=== PATIENT | female | born 1945 | race Caucasian/White ===

== ENCOUNTER 2017-03-02 13:26 | Observation (INO) | payer MEDICARE, OTHER ==
[~2017-03-02] VITALS: Ht 167.6 cm; Wt 79.4 kg
[2017-03-02 14:42] LABS: HEMOGLOBIN 13.1 gm/dl (12.3-15.3); RED BLOOD COUNT 4.45 M/UL (4.00-5.10); WHITE BLOOD COUNT 6.8 K/UL (4.5-11.0)
[2017-03-02 14:59] LABS: BUN/CREATININE RATIO 23 (0-10)
[2017-03-03 04:05] LABS: HEMOGLOBIN 12.1 gm/dl (12.3-15.3); RED BLOOD COUNT 4.12 M/UL (4.00-5.10); WHITE BLOOD COUNT 7.3 K/UL (4.5-11.0)
[2017-03-03 04:24] LABS: BUN/CREATININE RATIO 28 (0-10)
[2017-03-03] MEDS ORDERED: BUTALB-ACETAMI1 EAC1 PO (15:14)
[2017-03-03] MEDS ORDERED: ETODOLAC500 MG PO (15:15)
[2017-03-03] MEDS ORDERED: ASPIR 8181 MG PO (15:15)
== END 2017-03-03 18:07 | disposition home or self-care (01) ==
LOC: ER1 13:26 → ZEROF 15:30 → M/S 03-03 14:54
PROVIDERS: Emergency Medicine; ADMIT Hospitalist
DX: R07.9 Chest pain, unspecified (principal); I25.10 Atherosclerotic heart disease of native coronary artery without angina pectoris; M19.90 Unspecified osteoarthritis, unspecified site; Z86.69 Personal history of other diseases of the nervous system and sense organs; Z87.891 Personal history of nicotine dependence; Z79.82 Long term (current) use of aspirin
CPT/HCPCS: ECHO; 36415; 71010; 78452; 80048; 80053; 80061; 82550; 82553; 83735; 83874; 84484; 85025; 93005; 93017; 93306; 99285; A9502; G0378; J2785

== ENCOUNTER → 2021-08-28 | Outpatient (CLI) | payer MEDICARE ==
[~2021-08-28] MED LIST: ASPIR 8181 MG PO; BUTALB-ACETAMI1 EAC1 PO; ETODOLAC500 MG PO
== END ==
LOC: MAMO 09:00
DX: Z12.31 Encounter for screening mammogram for malignant neoplasm of breast (principal)
CPT/HCPCS: 77063; 77067